=== PATIENT | female | born 1940 | race Caucasian/White ===

== ENCOUNTER 2018-01-04 12:23 | Observation (INO) | payer OTHER, MEDICAID ==
[2018-01-04] VITALS (9 sets, daily range): BP systolic 101–182; BP diastolic 50–94; PULSE 56–64; RESP 16–22; TEMP 97.7–98; O2SAT 95–98
[2018-01-04] MEDS ORDERED: ASPI-183 PO (12:34)
[2018-01-04] MEDS ORDERED: PIND5 PO (12:34)
[2018-01-04] MEDS ORDERED: ASPIRIN 325 MG TAB PO ONE (12:45)
[2018-01-04] MEDS ORDERED: MORPHINE SULFATE 2 MG/ML SYRINGE IV PUSH ONE (13:00)
[2018-01-04] MEDS ORDERED: ONDANSETRON ODT 4 MG TAB PO ONE (13:00)
[2018-01-04 13:08] LABS: AUTOMATED NEUTROPHIL # 3.4 TH/MM3 (1.8-7.7); BASOPHIL # 0.1 TH/MM3 (0-0.2); BASOPHIL % 1.1 % (0.0-2.0); EOSINOPHIL # 0.4 TH/MM3 (0-0.4); HEMATOCRIT 42.1 % (35.0-46.0); HEMOGLOBIN 14.4 GM/DL (11.6-15.3); LYMPHOCYTE # 2.6 TH/MM3 (1.0-4.8); MEAN CELL VOLUME 87.2 FL (80.0-100.0); MEAN CORPUSCULAR HEMOGLOBIN 29.9 PG (27.0-34.0); MEAN CORPUSCULAR HGB CONC 34.3 % (32.0-36.0); MEAN PLATELET VOLUME 7.9 FL (7.0-11.0); MONO % 8.3 % (0.0-8.0); MONOCYTE # 0.6 TH/MM3 (0-0.9); NEUT % 47.6 % (16.0-70.0); PLATELET COUNT 229 TH/MM3 (150-450); RED BLOOD COUNT 4.83 MIL/MM3 (4.00-5.30); RED CELL DISTRIBUTION WIDTH 13.1 % (11.6-17.2); WHITE BLOOD COUNT 7.1 TH/MM3 (4.0-11.0)
--- NOTE | 2018-01-04 13:12 | RADRPT ---
EXAM DATE: 01/04/2018 12:58 PM EDT AGE/SEX: 77 years / Female INDICATIONS: Shortness of breath and chest pain. CLINICAL DATA: This is the patient's initial encounter. Patient reports that signs and symptoms have been present for 1 day and indicates a pain score of 6/10. MEDICAL/SURGICAL HISTORY: None. None. COMPARISON: None. FINDINGS: A single AP view of the chest demonstrates the lungs to be symmetrically aerated without evidence of mass, infiltrate or effusion. The cardiomediastinal contours are unremarkable. Osseous structures a re intact. CONCLUSION: Negative examination. Electronically signed by: Hay Cagle MD 01/04/2018 1:11 PM EDT
[2018-01-04] MEDS ORDERED: MORPHINE SULFATE 4 MG/ML INJ ONE (13:28)
[2018-01-04 13:35] LABS: ALT (GPT) 19 U/L (10-53); AST (GOT) 17 U/L (15-37); BICARBONATE 25.4 MEQ/L (21.0-32.0); BLOOD UREA NITROGEN 17 MG/DL (7-18); CALCIUM 8.7 MG/DL (8.5-10.1); CHLORIDE 104 MEQ/L (98-107); CREATININE 0.79 MG/DL (0.50-1.00); GLOMERULAR FILTRATION RATE 70 ML/MIN (>89); GLUCOSE,RANDOM 86 MG/DL (74-106); MAGNESIUM 2.5 MG/DL (1.5-2.5); SODIUM (NA) 140 MEQ/L (136-145)
[2018-01-04 13:39] LABS: ALKALINE PHOSPHATASE 98 U/L (45-117); TOTAL BILIRUBIN ADULT 0.5 MG/DL (0.2-1.0); TOTAL PROTEIN 7.6 GM/DL (6.4-8.2); TROPONIN I LESS THAN 0.02 NG/ML (0.02-0.05)
--- NOTE | 2018-01-04 13:58 | PD ---
HPI Chief Complaint: Cardiac Complaint Time Seen by Provider: 12:36 Travel History International Travel<30 days: No Contact w/Intl Traveler<30days: No Traveled to known affect area: No History of Present Illness HPI 77-year-old female presents to the ED for evaluation of left-sided chest pain. Per patient she had a left-sided chest pain since the past 3 4 hours. Per patient comes and goes. Per patient he radiates to her left arm and calluses some numbness and tingling. Per patient the pain feels like a pressure. She denies having had anything like this before but per daughter who is at bedside she has been complaining of some shortness of breath with exertion for the past 2-3 months which is new for her. Apparently this is known to her primary care doctor who recently order an echocardiogram and was done on Saturday in [place]. She is from [place]. She has not had a stress test in 10 years and apparently she had a normal stress test at the time. She denies ever having a heart cath. No history of heart disease on her cell but she does have a family history of heart disease. She denies ever smoking or drinking alcohol. She does have high blood pressure issue thanks blood pressure medications. She also has a history of high cholesterol but takes no medications as a give her a lot of side effects. She did take an aspirin today full aspirin with minimal relief. She cannot take nitroglycerin as she gets into for cardiac arrest with it. Denies diabetes. Pain per patient is 4 out of 10 and appears to be improving since being here. PFSH Past Medical History Arthritis: Yes Cardiovascular Problems: Yes (cardioneurogenic syndrome) Chest Pain: Yes Diminished Hearing: No Hypertension: Yes Musculoskeletal: Yes (osteopenia) ?: Not Past Surgical History Eye Surgery: Yes Genitourinary Surgery: Yes (bladder tuck) Gynecologic Surgery: Yes Hysterectomy: Yes Social History Alcohol Use: No Tobacco Use: No Substance Use: No Allergies-Medications (Allergen,Severity, Reaction): Coded Allergies: nitroglycerin (Verified Allergy, Severe, 01/04/18) pt's daughter states severe hypotension and cardiac arrest after nitro Reported Meds & Prescriptions Reported Meds & Active Scripts Active Reported Aspirin 325 Mg Tab 325 Mg PO DAILY PRN Pindolol 5 Mg Tab 5 Mg PO Q12HR Review of Systems Except as stated in HPI: all other systems reviewed are Neg Physical Exam Narrative GENERAL: SKIN: Warm and dry. HEAD: Atraumatic. Normocephalic. EYES: Pupils equal and round. No scleral icterus. No injection or drainage. ENT: No nasal bleeding or discharge. Mucous membranes pink and moist. Tongue is midline. No uvula deviation. NECK: Trachea midline. No JVD. CARDIOVASCULAR: Regular rate and rhythm. No murmurs, S3, S4. RESPIRATORY: No accessory muscle use. Clear to auscultation. Breath sounds equal bilaterally. GASTROINTESTINAL: Abdomen soft, non-tender, nondistended. Hepatic and splenic margins not palpable. MUSCULOSKELETAL: Extremities without clubbing, cyanosis, or edema. No obvious deformities. Full range of motion of the upper and lower extremities bilaterally. 2+ pulses bilaterally. NEUROLOGICAL: Awake and alert. No obvious cranial nerve deficits. Motor grossly within normal limits. Five out of 5 muscle strength in the arms and legs. Normal speech. PSYCHIATRIC: Appropriate mood and affect; insight and judgment normal. Data Data Last Documented VS Vital Signs Date Time Temp Pulse Resp B/P (MAP) Pulse Ox O2 Delivery O2 Flow Rate FiO2 01/04/18 13:37 16 01/04/18 12:50 96 Room Air 01/04/18 12:38 64 01/04/18 12:25 97.8 182/86 (118) Orders Orders Electrocardiogram (01/04/18 12:39) Complete Blood Count With Diff (01/04/18 12:39) Comprehensive Metabolic Panel (01/04/18 12:39) Ckmb (Isoenzyme) Profile (01/04/18 12:39) Troponin I (01/04/18 12:39) Prothrombin Time / Inr (Pt) (01/04/18 12:39) Act Partial Throm Time (Ptt) (01/04/18 12:39) Lipase (01/04/18 12:39) Magnesium (Mg) (01/04/18 12:39) Chest, Single Ap (01/04/18 12:39) Iv Access Insert/Monitor (01/04/18 12:39) Ecg Monitoring (01/04/18 12:39) Oximetry (01/04/18 12:39) Aspirin (Aspirin) (01/04/18 12:45) Morphine Inj (Morphine Inj) (01/04/18 13:00) Ondansetron Odt (Zofran Odt) (01/04/18 13:00) Morphine Inj (Morphine Inj) (01/04/18 13:28) Admit Order (Ed Use Only) (01/04/18 13:49) Labs Laboratory Tests Test 01/04/18 12:45 White Blood Count 7.1 TH/MM3 Red Blood Count 4.83 MIL/MM3 Hemoglobin 14.4 GM/DL Hematocrit 42.1 % Mean Corpuscular Volume 87.2 FL Mean Corpuscular Hemoglobin 29.9 PG Mean Corpuscular Hemoglobin Concent 34.3 % Red Cell Distribution Width 13.1 % Platelet Count 229 TH/MM3 Mean Platelet Volume 7.9 FL Neutrophils (%) (Auto) 47.6 % Lymphocytes (%) (Auto) 37.0 % Monocytes (%) (Auto) 8.3 % Eosinophils (%) (Auto) 6.0 % Basophils (%) (Auto) 1.1 % Neutrophils # (Auto) 3.4 TH/MM3 Lymphocytes # (Auto) 2.6 TH/MM3 Monocytes # (Auto) 0.6 TH/MM3 Eosinophils # (Auto) 0.4 TH/MM3 Basophils # (Auto) 0.1 TH/MM3 CBC Comment DIFF FINAL Differential Comment Prothrombin Time 10.0 SEC Prothromb Time International Ratio 1.0 RATIO Activated Partial Thromboplast Time 25.4 SEC Blood Urea Nitrogen 17 MG/DL Creatinine 0.79 MG/DL Random Glucose 86 MG/DL Total Protein 7.6 GM/DL Albumin 4.0 GM/DL Calcium Level 8.7 MG/DL Magnesium Level 2.5 MG/DL Alkaline Phosphatase 98 U/L Aspartate Amino Transf (AST/SGOT) 17 U/L Alanine Aminotransferase (ALT/SGPT) 19 U/L Total Bilirubin 0.5 MG/DL Sodium Level 140 MEQ/L Potassium Level 4.0 MEQ/L Chloride Level 104 MEQ/L Carbon Dioxide Level 25.4 MEQ/L Anion Gap 11 MEQ/L Estimat Glomerular Filtration Rate 70 ML/MIN Total Creatine Kinase 40 U/L Troponin I LESS THAN 0.02 NG/ML Lipase 113 U/L [facility] Medical Decision Making Medical Screen Exam Complete: Yes Emergency Medical Condition: Yes Medical Record Reviewed: Yes Interpretation(s) EKG shows sinus rhythm with no sign of acute ischemia or arrhythmia read by me and attending. Differential Diagnosis ACS versus chest pain versus typical chest pain versus pancreatitis versus normal exam Narrative Course 77-year-old female that presents to the ED for evaluation of left-sided chest pain. Patient was properly examined and was found to have signs and symptoms very concerning for ACS. Labs and imaging were ordered. Initial EKG and labs were essentially unremarkable. Patient was given morphine for pain as she cannot take nitroglycerin. Deafly concern for ACS as she does have risk factors. Discussed the case with my attending who agrees the patient should be admitted to chest pain center. This was discussed with the family and patient who are both in agreement with plan. Patient was admitted to the chest pain center by me. Procedures EKG Prior to Arrival: No Diagnosis Primary Impression: Chest pain in adult Admitting Information Admitting Physician Requests: Observation Francois Car January 04, 2018 13:58
[2018-01-04] MEDS ORDERED: ONDANSETRON ODT 4 MG TAB PO PRN (15:00)
[2018-01-04] MEDS ORDERED: ACETAMINOPHEN/HYDROcodone 325 MG/7.5 MG TAB PO PRN (15:00)
[2018-01-04] MEDS ORDERED: ACETAMINOPHEN 500 MG CPLT PO PRN (15:00)
--- NOTE | 2018-01-04 15:17 | HHI.HP ---
HPI Primary Care Physician Non-Staff Chief Complaint This is a 77-year-old female the presents to ED with her daughter with history of hypertension and borderline hyperlipidemia with a complaint of developing a chest discomfort around noon today while being a passenger in a vehicle. She describes as a left chest pressure with some numbness going into her left arm. Initially discomfort was rated as an 8 out of 10. Discomfort is still present but now rated as a 2 out of 10. States the morphine has helped. Patient realized that she had forgotten to take her blood pressure medicine when the discomfort occurred. At that time she took her medicine. She also states that she was short of breath, nauseous, and diaphoretic. She is with her daughter and from [place] on short vacation. States that she had a 2D echo yesterday in [place] but does not know the results. States that was performed secondary to recently developing shortness of breath with activity. Patient's daughter who is at the bedside also states that she has noticed this. She states that normal activities that she was able to do before without problem are now causing shortness of breath. Patient denies recent illness. Denies fevers or chills. States last stress test was about 5 years ago and that was okay. Review of Systems General: Patient denies fevers, chills. HEENT: Patient denies headache, sore throat, difficulty swallowing. Cardiovascular: Has the chest discomfort as mentioned above. Denies sensation of heart beating rapidly or irregularly. No syncope. She was diaphoretic this morning. Respiratory: She was short of breath. Denies inspirational chest discomfort. Denies coughing wheezing or hemoptysis. GI: She was nauseous. Patient denies vomiting, diarrhea, abdominal pain, bloody stools. Musculoskeletal: Patient denies joint pain or edema. Denies calf pain or edema. Neurovascular: Patient denies numbness, tingling, weakness in extremities. Denies headache. Endocrine: Denies polyuria and polydipsia. Hematologic: Denies easy bruising. Skin: Denies rash or itching. Past Family Social History Allergies: Coded Allergies: nitroglycerin (Verified Allergy, Severe, 01/04/18) pt's daughter states severe hypotension and cardiac arrest after nitro Past Medical History Hypertension and borderline hyperlipidemia. Denies diabetes and CAD. Lifetime non-smoker. Past Surgical History Noncontributory. Reported Medications Reported Meds & Active Scripts Active Reported Aspirin 325 Mg Tab 325 Mg PO DAILY PRN Pindolol 5 Mg Tab 5 Mg PO Q12HR Active Ordered Medications Current Medications Medications (Trade) Dose Ordered Sig/Marianela Route Start Time Stop Time Status Last Admin (Tylenol) 500 mg Q4H PRN PO 01/04/18 15:00 (Garber 7.5-325 Mg) 1 tab Q4H PRN PO 01/04/18 15:00 (Zofran Odt) 4 mg Q6H PRN PO 01/04/18 15:00 Family History Denies family history of CAD. Social History Lifetime non-smoker. Denies alcohol or illicit drug use. Physical Exam Vital Signs Vital Signs Date Time Temp Pulse Resp B/P (MAP) Pulse Ox O2 Delivery O2 Flow Rate FiO2 01/04/18 13:37 16 01/04/18 12:50 96 Room Air 01/04/18 12:38 64 20 98 Room Air 01/04/18 12:25 97.8 64 16 182/86 (118) 98 Physical Exam GENERAL: This is a well-nourished, well-developed patient, in no apparent distress. Patient speaks in clear complete sentences. Patient is pleasant. HEENT: Head is atraumatic and normocephalic. Neck is supple without lymphadenopathy and trachea is midline. No JVD or carotid bruits. CARDIOVASCULAR: Regular rate and rhythm without murmurs, gallops, or rubs. RESPIRATORY: Clear to auscultation. Breath sounds equal bilaterally. No wheezes , rales, or rhonchi. There is left upper chest wall tenderness. States it is worsening the symptoms that she has had. No use of accessory muscles. GASTROINTESTINAL: Abdomen is nontender, nondistended. Abdomen soft. No obvious pulsatile mass or bruit. No CVA tenderness. Strong femoral pulses bilaterally. Normal bowel sounds in all quadrants. MUSCULOSKELETAL: Patient is moving upper and lower extremities freely. No calf tenderness or edema, no Homans sign. Strong pulses in upper and lower extremities. NEUROLOGICAL: Patient is alert and oriented. Cranial nerves 2-12 are grossly intact. No focal deficits and speech is clear. SKIN: No rash and turgor is normal. Laboratory Laboratory Tests Test 01/04/18 12:45 White Blood Count 7.1 Red Blood Count 4.83 Hemoglobin 14.4 Hematocrit 42.1 Mean Corpuscular Volume 87.2 Mean Corpuscular Hemoglobin 29.9 Mean Corpuscular Hemoglobin Concent 34.3 Red Cell Distribution Width 13.1 Platelet Count 229 Mean Platelet Volume 7.9 Neutrophils (%) (Auto) 47.6 Lymphocytes (%) (Auto) 37.0 Monocytes (%) (Auto) 8.3 Eosinophils (%) (Auto) 6.0 Basophils (%) (Auto) 1.1 Neutrophils # (Auto) 3.4 Lymphocytes # (Auto) 2.6 Monocytes # (Auto) 0.6 Eosinophils # (Auto) 0.4 Basophils # (Auto) 0.1 CBC Comment DIFF FINAL Differential Comment Prothrombin Time 10.0 Prothromb Time International Ratio 1.0 Activated Partial Thromboplast Time 25.4 Blood Urea Nitrogen 17 Creatinine 0.79 Random Glucose 86 Total Protein 7.6 Albumin 4.0 Calcium Level 8.7 Magnesium Level 2.5 Alkaline Phosphatase 98 Aspartate Amino Transf (AST/SGOT) 17 Alanine Aminotransferase (ALT/SGPT) 19 Total Bilirubin 0.5 Sodium Level 140 Potassium Level 4.0 Chloride Level 104 Carbon Dioxide Level 25.4 Anion Gap 11 Estimat Glomerular Filtration Rate 70 Total Creatine Kinase 40 Troponin I LESS THAN 0.02 Lipase 113 Result Diagram: 01/04/18 1245 01/04/18 1245 Imaging Last 48 hours Impressions Chest X-Ray 01/04/18 1239 Signed Impressions: CONCLUSION: Negative examination. Course EKGs: Initial EKG is sinus rhythm rate of 63 grade nonspecific T-wave changes. No significant ST segment depressions or elevations. Caprini VTE Risk Assessment Caprini VTE Risk Assessment: Mod/High Risk (score >= 2) Caprini Risk Assessment Model Point Value = 1 Point Value = 2 Point Value = 3 Point Value = 5 Age 41-60 Minor surgery BMI > 25 kg/m2 Swollen legs Varicose veins or History of unexplained or recurrent spontaneous Oral contraceptives or hormone replacement Sepsis (< 1 month) Serious lung disease, including pneumonia (< 1 month) Abnormal pulmonary function Acute myocardial infarction Congestive heart failure (< 1 month) History of inflammatory bowel disease Medical patient at bed rest Age 61-74 Arthroscopic surgery Major open surgery (> 45 min) Laparoscopic surgery (> 45 min) Malignancy Confined to bed (> 72 hours) Immobilizing plaster cast Central venous access Age >= 75 History of VTE Family history of VTE Factor V Leiden Prothrombin [id number] Lupus anticoagulant Anticardiolipin antibodies Elevated serum homocysteine Heparin-induced thrombocytopenia Other congenital or acquired thrombophilia Stroke (< 1 month) Elective arthroplasty Hip, pelvis, or leg fracture Acute spinal cord injury (< 1 month) Prophylaxis Regimen Total Risk Factor Score Risk Level Prophylaxis Regimen 0-1 Low Early ambulation 2 Moderate Order ONE of the following: *Sequential Compression Device (SCD) *Heparin 5000 units SQ BID 3-4 Higher Order ONE of the following medications: *Heparin 5000 units SQ TID *Enoxaparin/Lovenox 40 mg SQ daily (WT < 150 kg, CrCl > 30 mL/min) *Enoxaparin/Lovenox 30 mg SQ daily (WT < 150 kg, CrCl > 10-29 mL/min) *Enoxaparin/Lovenox 30 mg SQ BID (WT < 150 kg, CrCl > 30 mL/min) AND/OR *Sequential Compression Device (SCD) 5 or more Highest Order ONE of the following medications: *Heparin 5000 units SQ TID (Preferred with Epidurals) *Enoxaparin/Lovenox 40 mg SQ daily (WT < 150 kg, CrCl > 30 mL/min) *Enoxaparin/Lovenox 30 mg SQ daily (WT < 150 kg, CrCl > 10-29 mL/min) *Enoxaparin/Lovenox 30 mg SQ BID (WT < 150 kg, CrCl > 30 mL/min) AND *Sequential Compression Device (SCD) Assessment and Plan Assessment and Plan * Chest pain: Patient will continue to have serial cardiac enzymes and EKGs for ruling out purposes. She will be seen by Dr. Jules of cardiology in the chest pain center. Likely to undergo a Lexiscan in the morning and would be discharged home if the stress test is nonischemic. Patient should follow-up with her physician. She should return to ED for interval issues. * Hypertension: Continue medication. Patient is stable at this time. She is agreeable to this plan. Papo Fitzgerald January 04, 2018 15:17
[2018-01-04] MEDS ORDERED: RESP: ALBUTEROL 2.5 MG/IPRATROPIUM 0.5 MG NEB (PRN) INH (15:30)
[2018-01-04] MEDS ORDERED: cloNIDine HCL 0.1 MG TAB PO PRN (15:30)
[2018-01-04 16:29] LABS: TROPONIN I LESS THAN 0.02 NG/ML (0.02-0.05)
[2018-01-04 19:55] LABS: TROPONIN I LESS THAN 0.02 NG/ML (0.02-0.05)
[2018-01-04] MEDS ORDERED: PINDOLOL 5 MG TAB PO SCH (21:00)
[2018-01-05 04:40] VITALS: BP 111/53; PULSE 62; RESP 16; TEMP 98.7; O2SAT 97
[2018-01-05] MEDS ORDERED: ASPIRIN 325 MG TAB PO SCH (09:00)
--- NOTE | 2018-01-05 15:15 | EKG ---
Date Performed: 01/04/2018 Time Performed: 18:55:16 PTAGE: 77 years EKG: SINUS BRADYCARDIA MODERATE T-WAVE ABNORMALITY, CONSIDER ANTERIOR ISCHEMIA ABNORMAL ECG PREVIOUS TRACING : 01/04/2018 15.45 Since previous tracing, no significant change noted DOCTOR: René Jules Interpretating Date/Time 01/05/2018 15:13:27
--- NOTE | 2018-01-05 15:15 | EKG ---
Date Performed: 01/04/2018 Time Performed: 15:45:12 PTAGE: 77 years EKG: SINUS BRADYCARDIA MODERATE T-WAVE ABNORMALITY, CONSIDER ANTERIOR ISCHEMIA ABNORMAL ECG PREVIOUS TRACING : 01/04/2018 12.34 Compared to previous tracing,T wave changes are more promin ant DOCTOR: René Jules Interpretating Date/Time 01/05/2018 15:15:20
--- NOTE | 2018-01-05 15:18 | EKG ---
Date Performed: 01/04/2018 Time Performed: 12:34:28 PTAGE: 77 years EKG: Sinus rhythm NONSPECIFIC T-WAVE ABNORMALITY BORDERLINE ECG NO PREVIOUS TRACING DOCTOR: René Jules Interpretating Date/Time 01/05/2018 15:16:26
== END 2018-01-05 16:08 | disposition left against medical advice (07) ==
LOC: NEPE 12:23 → NEDA 13:50 → NEPFCDU 17:13
DX: R07.89 Other chest pain (principal); R06.02 Shortness of breath; R11.0 Nausea; R20.0 Anesthesia of skin; Z82.49 Family history of ischemic heart disease and other diseases of the circulatory system; R20.2 Paresthesia of skin; E78.00 Pure hypercholesterolemia, unspecified; I10 Essential (primary) hypertension; M85.80 Other specified disorders of bone density and structure, unspecified site; R94.31 Abnormal electrocardiogram [ECG] [EKG]; E78.5 Hyperlipidemia, unspecified
CPT/HCPCS: 71045; 80053; 82550; 83690; 83735; 84484; 85025; 85610; 85730; 93005; 96374; G0378; J2270